=== PATIENT | male | born 1950 ===

== ENCOUNTER 2017-01-01 08:25 | Day surgery (SDC) | payer MEDICAID ==
[2016-12-25 15:58] VITALS: BMI 26.7
[2017-01-01] MEDS ORDERED: Propofol 10 mg/ml Inj (20 ML) ONE (10:57)
[2017-01-01 11:38] VITALS: O2SAT 99
[2017-01-01] MEDS ORDERED: Sodium Chloride 0.9% 1,000 ML IV SCH (12:30)
[2017-01-01 13:17] VITALS: BP 137/73; PULSE 67; RESP 18; TEMP 98.4
== END 2017-01-01 13:58 | disposition home or self-care (01) ==
LOC: ENDO 08:25
PROVIDERS: ATTEND Internal Medicine
DX: D12.2 Benign neoplasm of ascending colon (principal); D12.0 Benign neoplasm of cecum; D12.3 Benign neoplasm of transverse colon; K57.30 Diverticulosis of large intestine without perforation or abscess without bleeding; K64.8 Other hemorrhoids; K21.9 Gastro-esophageal reflux disease without esophagitis; K29.70 Gastritis, unspecified, without bleeding; K29.80 Duodenitis without bleeding; I10 Essential (primary) hypertension; F17.210 Nicotine dependence, cigarettes, uncomplicated; Z12.11 Encounter for screening for malignant neoplasm of colon
CPT/HCPCS: 43239; 45380; 45381; 45385; 88305; 88312; 88342; J2704; J3010; J7040 ×2

== ENCOUNTER 2018-08-04 17:47 | Inpatient (IN) | payer MEDICAID, MEDICARE ==
[2018-08-04 18:02] VITALS: BMI 25.4
[2018-08-04] MEDS: Albuterol-Ipratrop 3 mg / 0.5 (3 ml) UD IH SCH ×3 (18:45→19:13)
--- NOTE | 2018-08-04 18:54 | ED PDOC ---
Arrival/HPI - General Chief Complaint: Shortness Of Breath Time Seen by Provider: 08/04/18 17:57 Historian: Patient - History of Present Illness Narrative History of Present Illness (Text): 08/04/18 18:44 68 y/o M w/ h/o COPD current smoker(7ppwk), HTN presenting to the Emergency Room with shortness of breath ongoing for a couple of weeks. He describes the dyspnea as exertional with associated wheezing that have not been amenable to his inhaled medications. He reports worsening of his symptoms from frequent medication changes for his COPD and attributes his symptoms worsening because of them. He reports seeing his PCP for his symptoms and recalls having lab work performed on 07/30/18 that showed an elevated troponin of 0.[address] chest results. The patient was called and updated on results today and advised to present to the Emergency Room. The patient PCP: Dr. Dias Time/Duration: > week Symptom Onset: Gradual Symptom Course: Unchanged Quality: Tightness Activities at Onset: Rest Context: Home Past Medical History - Provider Review Nursing Documentation Reviewed: Yes - Travel History Have you recently traveled outside [place] w/in the past 3 mons?: No - Infectious Disease Hx of Infectious Diseases: None - Tetanus Immunization Tetanus Immunization: Unknown - Cardiac Hx Pacemaker: No - Pulmonary Hx Chronic Obstructive Pulmonary Disease (COPD): Yes - Neurological Hx Paralysis: No - HEENT Hx Cataracts: Yes (CATARACT removal RT EYE) - Renal Hx Renal Disorder: No - Hematological/Oncological Hx Blood Transfusions: No Hx Blood Transfusion Reaction: No - Integumentary Hx Dermatological Disorder: No - Musculoskeletal/Rheumatological Hx Musculoskeletal Disorders: Yes - Gastrointestinal Hx Gastrointestinal Disorders: No - Genitourinary/Gynecological Hx Prostate Problems: Yes (" BLADDER SPASMS ON AND OFF ") - Psychiatric Hx Emotional Abuse: No Hx Physical Abuse: No Hx Substance Use: No - Anesthesia Hx Anesthesia: Yes Hx Anesthesia Reactions: No Hx Malignant Hyperthermia: No - Suicidal Assessment Feels Threatened In Home Enviroment: No Family/Social History Smoking Status: Light Smoker < 10 Cigarettes Daily Hx Alcohol Use: No Hx Substance Use: No Hx Substance Use Treatment: No Allergies/Home Meds Allergies/Adverse Reactions: Allergies No Known Allergies Allergy (Verified 11/09/13 18:14) Home Medications: Home Meds Medication Instructions Recorded Confirmed Albuterol 0.083% [Albuterol 0.083% 3 ml IH DAILY 09/24/12 01/01/17 Inhal Ignacia (2.5 mg/3 ml) UD] Amlodipine Besylate 5 mg PO DAILY 09/24/12 01/01/17 Aspirin [Aspir 81] 81 mg PO DAILY 09/24/12 01/01/17 Ginkgo Biloba [Ginko Biloba] 60 mg PO DAILY 09/24/12 01/01/17 Terazosin HCl 5 mg PO DAILY 09/24/12 01/01/17 Vitamin B Complex 1 tab PO DAILY 09/24/12 01/01/17 Acetaminophen/Oxycodone Hydr 1 tab PO Q6 PRN 11/09/13 01/01/17 [Percocet 325 mg-5 mg] Ibuprofen 800 mg PO BID 11/09/13 01/01/17 Omeprazole 40 mg PO DAILY 11/09/13 01/01/17 Polyethylene Glycol 3350 17 gm PO BID 11/09/13 01/01/17 Calcium 600 mg PO DAILY 12/25/16 01/01/17 Ibandronate Sodium [Boniva] 150 mg PO QWK 12/25/16 01/01/17 Review of Systems - Physician Review All systems were reviewed & negative as marked: Yes - Review of Systems Respiratory: SOB, Wheezing. absent: Cough, Sputum Physical Exam Vital Signs Reviewed: Yes Vital Signs Temp Pulse Resp BP Pulse Ox 08/04/18 18:11 20 96 08/04/18 18:01 98.8 F 103 H 19 120/69 96 Temperature: Afebrile Blood Pressure: Normal Pulse: Tachycardic Respiratory Rate: Normal Appearance: Positive for: Well-Appearing, Non-Toxic, Comfortable Mental Status: Positive for: Alert and Oriented X 3 - Systems Exam Head: Present: Atraumatic, Normocephalic Pupils: Present: PERRL Extroacular Muscles: Present: EOMI Conjunctiva: Present: Normal Mouth: Present: Moist Mucous Membranes Neck: Present: Normal Range of Motion Respiratory/Chest: Present: Wheezes, Decreased Breath Sounds, Other (able to speak in full sentences). No: Clear to Auscultation, Accessory Muscle Use Cardiovascular: Present: Tachycardic Abdomen: Present: Normal Bowel Sounds. No: Tenderness, Distention, Peritoneal Signs Upper Extremity: Present: Normal Inspection. No: Cyanosis, Edema Neurological: Present: Speech Normal Skin: Present: Warm, Dry, Normal Color. No: Rashes Psychiatric: Present: Alert, Oriented x 3, Normal Insight, Normal Concentration Medical Decision Making ED Course and Treatment: 08/04/18 19:00 Impression: 68 y/o M w/ h/o COPD presenting to the ED wit progressively worsening dyspnea Plan --Labs --Duonebs --Solumedrol --CXR --EKG --Reassess & disposition Progress Notes 08/04/18 19:31 Labs reviewed with troponin noted to be 0.07(lower than 0.13). CXR reviewed with mild cardiomegaly noted as well as elevated BNP of 2070. 08/04/18 19:[address] Dias(PCP) who accepts the patient onto his service, requesting Dr. Jensen(cardiology) for cardiac consult. - Lab Interpretations Lab Results: 08/04/18 18:24 08/04/18 18:24 Lab Results 08/04/18 18:58: pO2 68 H, VBG pH 7.44 H, VBG pCO2 34.0 L, VBG HCO3 23.1, VBG Total CO2 24.1, VBG O2 Sat (Calc) 96.3 H, VBG Base Excess -0.5 L, VBG Potassium 3.8, Glucose 117 H, Lactate 1.7, FiO2 21.0, Sodium 141.0, Chloride 110.0 H, Venous Blood Potassium 3.8 08/04/18 18:24: Sodium 142, Potassium 3.6, Chloride 109 H, Carbon Dioxide 23, Anion Gap 14, BUN 17, Creatinine 1.0, Est GFR ( Amer) > 60, Est GFR (Non- Af Amer) > 60, Random Glucose 110, Calcium 9.1, Magnesium 1.5 L, Total Bilirubin 0.5, AST 36, ALT 19, Alkaline Phosphatase 49, Troponin I 0.07, NT-Pro-B Natriuret Pep 2070 H, Total Protein 6.2, Albumin 3.5, Globulin 2.7, Albumin/Globulin Ratio 1.3 08/04/18 18:24: PT 13.6 H, INR 1.23, APTT 31.7, D-Dimer, Quantitative 313 H 08/04/18 18:24: WBC 11.4 H, RBC 4.35, Hgb 12.4 L, Hct 36.7 L, MCV 84.4, MCH 28.5, MCHC 33.8, RDW 12.3, Plt Count 256, MPV 10.1, Neut % (Auto) 70.4 H, Lymph % (Auto) 21.1 L, [place] % (Auto) 7.4 H, Eos % (Auto) 0.8 L, Baso % (Auto) 0.3, L ymph # (Auto) 2.4, [place] # (Auto) 0.9 H, Eos # (Auto) 0.1, Baso # (Auto) 0.03, Absolute Neuts (auto) 8.04 H I have reviewed the lab results: Yes - RAD Interpretation Radiology Orders: 08/04/18 18:34 CHEST PORTABLE [RAD] Stat - Medication Orders Current Medication Orders: Albuterol/Ipratropium (Duoneb 3 Mg/0.5 Mg (3 Ml) Ud) 3 ml IH Q15M MOMO Stop: 08/04/18 19:16 Discontinued Medications Methylprednisolone (Solu-Medrol) 125 mg IVP STAT STA Stop: 08/04/18 18:35 08/04/18 19:32 Discontinued Medications Albuterol/Ipratropium (Duoneb 3 Mg/0.5 Mg (3 Ml) Ud) 3 ml IH Q15M MOMO Stop: 08/04/18 19:16 Last Admin: 08/04/18 18:58 Dose: 3 ml Methylprednisolone (Solu-Medrol) 125 mg IVP STAT STA Stop: 08/04/18 18:35 Last Admin: 08/04/18 18:49 Dose: 125 mg IVP Administration Document 08/04/18 18:49 BB (Rec: 08/04/18 18:58 BB [facility] [id number] Charges for Administration # of IVP Administrations 1 Disposition/Present on Arrival - Present on Arrival Any Indicators Present on Arrival: No History of DVT/PE: No History of Uncontrolled Diabetes: No Urinary Catheter: No History of Decub. Ulcer: No History Surgical Site Infection Following: None - Disposition Have Diagnosis and Disposition been Completed?: Yes Diagnosis: Dyspnea Disposition: HOSPITALIZED Disposition Time: 19:42 Patient Plan: Admission Condition: FAIR Forms: [employer] ([place])
[2018-08-04 19:00] LABS: BASO # 0.03 K/mm3 (0.0-2.0); BASO % 0.3 % (0.0-3.0); EOS # 0.1 (0.0-0.7); EOS % 0.8 % (1.5-5.0); HEMOGLOBIN 12.4 g/dL (14.0-18.0); LYMPH # 2.4 (1.2-3.4); LYMPH % 21.1 % (22.0-35.0); MEAN CELL VOLUME 84.4 fl (80.0-105.0); MEAN CORPUSCULAR HEMOGLOBIN 28.5 pg (25.0-35.0); MEAN CORPUSCULAR HGB CONC 33.8 g/dl (31.0-37.0); MEAN PLATELET VOLUME 10.1 fl (7.0-11.0); MONO # 0.9 (0.1-0.6); MONO % 7.4 % (1.0-6.0); RBC 4.35 10^6/uL (3.5-6.1); RED CELL DISTRIBUTION WIDTH 12.3 % (11.5-14.5); WHITE BLOOD COUNT 11.4 10^3/uL (4.5-11.0)
[2018-08-04 19:04] LABS: INR 1.23; PARTIAL THROMBOPLASTIN TIME 31.7 Seconds (26.9-38.3); PROTHROMBIN TIME 13.6 SECONDS (9.4-12.5)
[2018-08-04 19:06] LABS: ALB/GLOB RATIO 1.3 (1.1-1.8); ALBUMIN 3.5 g/dL (3.0-4.8); ALT/SGPT 19 U/L (7-56); AST/SGOT 36 U/L (17-59); BLOOD UREA NITROGEN 17 mg/dL (7-21); CALCIUM 9.1 mg/dL (8.4-10.5); GFR NON-AFRICAN AMERICAN > 60
[2018-08-04 19:08] LABS: VENOUS BLOOD GAS BASE EXCESS -0.5 mmol/L (0.0-2.0); VENOUS BLOOD GAS PO2 68 mm/Hg (30-55); VENOUS BLOOD PH 7.44 (7.32-7.43)
[2018-08-04 19:17] LABS: B-TYPE NATRIURETIC PEPTIDE 2070 pg/mL (0-450); TROPONIN I 0.07 ng/mL
[2018-08-04] MEDS ORDERED: Albuterol 0.083% Inhal Sol (2.5 mg/3 mL) UD INH STA (19:40)
[2018-08-04] MEDS: Magnesium Sulfate 2 GM in 50 ml Water IVPB ONE ×2 (20:21→23:06)
[2018-08-04] MEDS ORDERED: Magnesium Sulfate 2 GM in Sodium Chloride 0.9% 100 ML IV ONE (21:47)
[2018-08-04 22:26] LABS: URINE BILIRUBIN NEGATIVE (NEGATIVE); URINE BLOOD NEGATIVE (NEGATIVE); URINE GLUCOSE (UA) NEGATIVE (NEGATIVE); URINE LEUKOCYTE ESTERASE NEGATIVE Leu/uL (NEGATIVE); URINE PROTEIN NEGATIVE mg/dL (<30 mg/dL); URINE UROBILINOGEN 0.2 E.U./dL (<1 E.U./dL)
[2018-08-04 22:29] LABS: URINE APPEARANCE CLEAR (CLEAR); URINE COLOR YELLOW (YELLOW)
[2018-08-04] MEDS: Magnesium Oxide 400 mg Tab UD PO SCH (23:05)
[2018-08-05] MEDS: Arformoterol 15 mcg/2 ml Inh Sol IH SCH ×2 (07:45→19:32)
[2018-08-05] MEDS: Budesonide 0.5 mg/2 ml Inhal Susp UD IH SCH ×2 (07:45→19:32)
--- NOTE | 2018-08-05 08:13 | CT ---
Date of service: 08/04/2018 PROCEDURE: CT Chest with contrast (Pulmonary Angiogram) HISTORY: dyspne high d dimer, COMPARISON: None available. TECHNIQUE: Axial computed tomography images were obtained of the chest in the pulmonary arterial phase of enhancement. Coronal and sagittal reformatted images were created and reviewed. Intravenous contrast dose: 120 cc of Omni 350 Radiation dose: Total exam DLP = 349.64 mGy-cm. This CT exam was performed using one or more of the following dose reduction techniques: Automated exposure control, adjustment of the mA and/or kV according to patient size, and/or use of iterative reconstruction technique. FINDINGS: PULMONARY ARTERIES: Unremarkable. No pulmonary embolism. AORTA: No acute findings. No thoracic aortic aneurysm. Aortic and coronary artery calcification LUNGS: Emphysematous changes are seen in the upper lobes PLEURAL SPACES: Unremarkable. No effusion or pneumothorax. HEART: Unremarkable. No cardiomegaly. No significant pericardial effusion. LYMPH NODES: No lymphadenopathy. BONES, CHEST WALL: Unremarkable. No fracture or destructive lesion OTHER FINDINGS: Unremarkable. IMPRESSION: No evidence of pulmonary embolus. Emphysema. Extensive coronary artery calcification
--- NOTE | 2018-08-05 08:35 | RAD ---
Date of service: 08/04/2018 HISTORY: sob COMPARISON: 11/09/2013 TECHNIQUE: 1 view obtained. FINDINGS: LUNGS: No active pulmonary disease. PLEURA: No significant pleural effusion identified, no pneumothorax apparent. CARDIOVASCULAR: No aortic atherosclerotic calcification present. Normal cardiac size. No pulmonary vascular congestion. OSSEOUS STRUCTURES: No significant abnormalities. VISUALIZED UPPER ABDOMEN: Normal. OTHER FINDINGS: None. IMPRESSION: No active disease.
[2018-08-05 09:38] LABS: TROPONIN I 0.05 ng/mL
[2018-08-05] MEDS ORDERED: Enoxaparin 40 mg Syringe SC SCH (10:00)
[2018-08-05] MEDS ORDERED: Sodium Chloride 0.45% 1,000 ML IV SCH (10:15)
[2018-08-05] MEDS: Enoxaparin 60 mg Syringe SC SCH ×2 (10:20→21:24)
[2018-08-05] MEDS: Magnesium Oxide 400 mg Tab UD PO SCH ×2 (10:20→17:31)
--- NOTE | 2018-08-05 11:50 | CARD ---
APPROVED REPORT Date of service: 08/04/2018 EKG Measurement Heart [id number] <Conclusion> Sinus tachycardia Incomplete right bundle branch block Left anterior fascicular block Left ventricular hypertrophy with repolarization abnormality Cannot rule out Septal infarct, age undetermined Abnormal ECG
--- NOTE | 2018-08-05 14:06 | CON ---
DATE: 08/05/2018 PULMONARY CONSULTATION NOTE REFERRING PHYSICIAN: Martín Dias MD REASON FOR CONSULT: Dyspnea and COPD. HISTORY OF PRESENT ILLNESS: This is a 68-year-old male with past medical history significant for hypertension, COPD, acid reflux, glaucoma, who presented to the emergency room complaining of shortness of breath which has been ongoing for a couple of weeks. States that he experiences dyspnea on exertion associated with wheezing. He has been taking inhaled medications which have not provided relief. Reports that he has recently had frequent medication changes for his COPD. States that he saw his primary care physician for his symptoms and have blood work drawn which showed elevated troponin of 0.[address] chest result. The patient was called and updated with results prior to coming to the emergency room as he was told to come to [facility] ER for evaluation. Today, the patient seen lying in bed. Reports that he does get short of breath with exertion, has nonproductive cough, and runny nose. States that he feels fatigued throughout the day. PAST MEDICAL HISTORY: As per history of present illness. SOCIAL HISTORY: Former smoker. Reports quitting 11/2017, used to smoke one pack per day. No illicit drug use. No reported EtOH abuse. FAMILY HISTORY: No significant cardiopulmonary disease reported. ALLERGIES: NO KNOWN ALLERGIES. MEDICATIONS: Reviewed. Norvasc 5 mg p.o. daily, Brovana 15 mcg every 12 hours, aspirin 81 mg daily, Pulmicort 0.5 mg inhalation twice a day, Plavix 75 mg daily, Lovenox 60 mg subcutaneous every 12 hours, Pepcid 40 mg IV twice a day, Xopenex 0.63 mg inhalation every 6 hours p.r.n., magnesium oxide 400 mg twice a day, metoprolol tartrate 25 mg at breakfast and dinner, and sodium chloride 0.45% a 1000 mL at 100 mL per hour. REVIEW OF SYSTEMS: No headache, chest pain, abdominal pain, nausea, vomiting, diarrhea, leg pain, or leg swelling reported. Reports shortness of breath with exertion, nonproductive cough, runny nose, reports that he snores, reports having daytime fatigue. PHYSICAL EXAMINATION VITAL SIGNS: Blood pressure 143/73, pulse 58, temperature 98.1, and oxygen saturation 98% on room air. GENERAL: No acute distress. HEENT: Moist mucous membranes. Mallampati score of 4. NECK: Supple. No JVD. RESPIRATORY: Few scattered rhonchi. CARDIOVASCULAR: S1 and S2. ABDOMEN: Soft and nontender. No distention. No organomegaly. EXTREMITIES: No bilateral lower extremity edema. NEUROLOGIC: Awake, alert, verbal, and following commands. LABORATORY DATA: Reviewed. WBC 11.4, RBC 4.35, hemoglobin 12.4, hematocrit 36.7 and platelets 256. PT 13.6, INR 1.23, and APTT 31.7. D-dimer 313. PO2 of 68, venous blood gas pH 7.44, venous blood gas PCO2 of 34, venous blood gas HCO3 of 23.1 on FiO2 of 21. Sodium 142, potassium 3.6, chloride 109, carbon dioxide 23, anion gap 14, BUN 17, creatinine 1, GFR is greater than 60, random glucose 110, calcium 9.1, magnesium 1.5, total bilirubin 0.5, AST 36, ALT 19, alkaline phosphatase 49, lactate dehydrogenase is 433, total creatine kinase 276, CK-MB 2. Troponin 0.05. ProBNP 2070, total protein 6.2, albumin 3.5, globulin 2.5 and albumin-globulin ratio 1.3. Urinalysis unremarkable. EKG shows sinus tachycardia, incomplete right bundle branch block, left anterior fascicular block, left ventricular hypertrophy with repolarization abnormality. Chest x-ray showed no active disease. Chest CT shows no evidence of pulmonary embolism. Snows emphysema, extensive coronary artery calcification. Echocardiogram report pending. IMPRESSION AND PLAN: Chronic obstructive pulmonary disease exacerbation, heart failure, emphysema, and hypertension. Continue inhaled bronchodilators. Continue deep venous thrombosis prophylaxis. We will place the patient on Solu-Medrol 20 mg every [address] the patient on Zithromax 500 mg daily for chronic obstructive pulmonary disease exacerbation. We will change Pepcid to p.o. and place the patient on Pepcid 40 mg daily. Gastroesophageal reflux disease precautions. Suspect the patient may have sleep apnea, so sleep apnea precautions, head of bed elevated at 45 degrees. Recommend sleep study as outpatient. Recommend the patient have full pulmonary function test as outpatient to assess extent of chronic lung disease. We will follow up with echocardiogram report when available. This patient was seen and examined with Dr. Nieto. Discussed assessment and plan as described above. This patient was seen and examined with Brianna Gonsalez, nurse practitioner. Discussed assessment and plan as described above. Thank you for this consult. We will follow with you. Wallace Reed APN Don Nieto MD MTDAriana
[2018-08-05] MEDS: MethylPREDNISolone 40 mg Vial IVP SCH ×2 (14:19→21:24)
[2018-08-05 15:02] LABS: TROPONIN I 0.04 ng/mL
[2018-08-05 15:05] LABS: CK-MB 2.9 ng/mL (0.0-3.6)
[2018-08-05] MEDS: Levalbuterol 0.63 MG/3 ML Inhal Soln UD IH PRN (15:50)
--- NOTE | 2018-08-05 20:15 | CARD ---
APPROVED REPORT Date of service: 08/05/2018 EXAM: Two-dimensional and M-mode echocardiogram with Doppler and color Doppler. INDICATION Chest Pain ACS, 2D DIMENSIONS Left Atrium (2D)4.3 (1.6-4.0cm)IVSd1.3 (0.7-1.1cm) LVDd4.8 (3.9-5.9cm)LVOT Diameter2.1 (1.8-2.4cm) PWd1.1 (0.7-1.1cm)LVDs3.3 (2.5-4.0cm) FS (%) 31.6 %LVEF (%)59.5 (>50%) M-Mode DIMENSIONS Aortic Root2.60 (2.2-3.7cm)Aortic Cusp Exc.1.00 (1.5-2.0cm) Aortic Valve AoV Peak Yjcbtzcl340.5cm/sAoV VTI62.4cmAO Peak GR.56mmHg LVOT Peak Srnnbzkr507.5cm/sLVOT VTI21.10cmAO Mean GR.23mmHg VIVIANE (VMAX)1.11dl4PKC (VTI)1.25cm2 Mitral Valve E/A ratio0.0 TDI E/Lateral E'0.0E/Medial E'0.0 Tricuspid Valve TR Peak Kvjisvkw309hd/sRAP [id number] Peak Gr.33mmHg [id number] LEFT VENTRICLE The left ventricle is normal size. Mild Septal Hypertrophy. The left ventricular function is normal. The left ventricular ejection fraction is within the normal range.Ej.Fr: 60%. RIGHT VENTRICLE The right ventricle is normal size. The right ventricular systolic function is normal. ATRIA The left atrium is mildly dilated. The right atrium size is normal. AORTIC VALVE Calcified Aortic Valve shows Moderate to Severe Aortic Stenosis.AV.gr:56mm Hg. Valve Opening 1.00 cm. There is moderate to severe aortic regurgitation. TRICUSPID VALVE The tricuspid valve is normal in structure. There is mild tricuspid regurgitation. RVSP: 43mm Hg.Mild Pulmonary Hypertension. PERICARDIAL EFFUSION There is no pericardial effusion. <Conclusion> The left ventricle is normal size. Mild Septal Hypertrophy. The left ventricular function is normal. The left ventricular ejection fraction is within the normal range.Ej.Fr: 60%. The right ventricle is normal size. The right ventricular systolic function is normal. The left atrium is mildly dilated. The right atrium size is normal. Calcified Aortic Valve shows Moderate to Severe Aortic Stenosis.AV.gr:56mm Hg. Valve Opening 1.00 cm. Moderate to Severe Aortic Regurge. Thickened Mitral Leaflet. Mild Mitral Regurge. The tricuspid valve is normal in structure. There is mild tricuspid regurgitation. RVSP: 43mm Hg.Mild Pulmonary Hypertension. There is no pericardial effusion.
--- NOTE | 2018-08-05 20:43 | CON ---
DATE: 08/05/2018 CONSULT SERVICE: Cardiology. REASON FOR CONSULTATION AND FOLLOWUP: Cardiac evaluation, dyspnea on exertion, and questionable chest pain. BRIEF CLINICAL HISTORY: This is a 68-year-old male, active tobacco abuse, recently stopped smoking, history of hypertension, came to the emergency room with complaint of shortness of breath progressively worsening. Recently, troponin was sent by Dr. Dias's office on 07/30/2018 came at 0.13, so the patient was called for cardiac evaluation. The patient had a chest CT done last night on admission that shows extensive coronary calcification, unremarkable. No evidence of pulmonary embolism. PAST MEDICAL HISTORY: Significant for hypertension, benign prostatic hypertrophy, and COPD. PREVIOUS CARDIAC WORKUP: The patient had transesophageal echo on 09/29/[address] 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 SUSANNE at that time revealed aortic size and normal size ascending aorta is normal. Pulmonary artery is normal. IVC is normal. Normal LV/RV size and function, ejection fraction 65%, intraatrial septal aneurysm noted with intermittent PFO noted by bubble study and color flow, which is hemodynamically not significant. No mass noted in chambers. Tricuspid annular calcification noted as well as noncoronary cusp aortic valve, which is somewhat immobile, not coapting well with mild , moderate aortic regurgitation with a peak gradient across aortic valve 19 mmHg across aortic valve. Aortic valve area 1.8 cm2. This calcification casting showed the right atrium mass at that time, dated 09/29/2018. Yesterday, the patient had a CAT scan of the chest was done that shows coronary calcification and no evidence of pulmonary embolism. Chest is essentially normal. REVIEW OF SYSTEMS: As per HPI. CURRENT MEDICATIONS: The patient is taking at home; B complex, , polyethylene glycol, omeprazole, ibuprofen, calcium, aspirin, and amlodipine. PHYSICAL EXAMINATION: VITAL SIGNS: As follows; temperature afebrile, heart rate 58, and blood pressure 143/78. HEENT: PERRLA. Extraocular muscles intact. NECK: Supple. No carotid bruits or thyromegaly. CHEST: Clear to auscultation. HEART: S1 and S2 regular. ABDOMEN: Soft. EXTREMITIES: Clubbing and cyanosis negative. LABORATORY DATA: Blood workup; WBC 11.4, hemoglobin 12.4, hematocrit 36.7, and platelet count 256. Chemistry shows sodium 140, potassium 3.6, chloride 109, carbon dioxide 23, anion gap of 14, BUN 17, and creatinine 1. Calcium 9.1, magnesium 1.5, troponin 0.07, and BNP 2070. EKG shows sinus tachycardia, incomplete right bundle, and left anterior hemiblock. IMPRESSION: A 68-year-old male with past medical history significant for smoking for more than 40 years pack history of smoking and recently quit, came in with shortness of breath progressively worsening and sometimes had tightness of the chest. Troponin sent by Dr. Dias's office on 07/30/2018 of 0.13, possible underlying coronary artery disease. CAT scan of the chest also shows significant coronary calcification and high probability of coronary artery disease. RECOMMENDATIONS: Consider cardiac catheterization. We will get echocardiogram to assess LV function, lipid profile, TSH, and hemoglobin A1c. Load with the Plavix and discuss possibly consider cardiac catheterization after finishing workup with the patient able to lay flat in the bed. The patient has mild shortness of breath, aggressive to treat COPD. We will also give beta-efrain, Lovenox, and start aspirin, Plavix, and atorvastatin. We will follow with you. Thank you Dr. Dias for providing us the opportunity in taking care of the patient, Elyssa Garcia. Don Gonzalez MD
[2018-08-06] MEDS: MethylPREDNISolone 40 mg Vial IVP SCH ×3 (05:53→21:28)
[2018-08-06 06:30] LABS: BASO # 0.01 K/mm3 (0.0-2.0); BASO % 0.1 % (0.0-3.0); LYMPH # 2.4 (1.2-3.4); LYMPH % 19.4 % (22.0-35.0); MEAN CORPUSCULAR HEMOGLOBIN 28.1 pg (25.0-35.0); MEAN CORPUSCULAR HGB CONC 33.4 g/dl (31.0-37.0); MONO # 0.7 (0.1-0.6); MONO % 5.7 % (1.0-6.0); RBC 4.63 10^6/uL (3.5-6.1); RED CELL DISTRIBUTION WIDTH 12.3 % (11.5-14.5); WHITE BLOOD COUNT 12.1 10^3/uL (4.5-11.0)
[2018-08-06 07:00] LABS: LDL CHOLESTEROL 77 mg/dL (0-129)
[2018-08-06 07:03] LABS: ALB/GLOB RATIO 1.4 (1.1-1.8); ALBUMIN 4.1 g/dL (3.0-4.8); ALT/SGPT 29 U/L (7-56); AST/SGOT 52 U/L (17-59); BLOOD UREA NITROGEN 28 mg/dL (7-21); GFR NON-AFRICAN AMERICAN > 60; HDL CHOLESTEROL 41 mg/dL (29-60)
[2018-08-06] MEDS: Arformoterol 15 mcg/2 ml Inh Sol IH SCH ×2 (07:51→20:08)
[2018-08-06] MEDS: Budesonide 0.5 mg/2 ml Inhal Susp UD IH SCH ×2 (07:52→20:08)
--- NOTE | 2018-08-06 07:55 | HP ---
DATE OF EXAM: 08/05/2018 HISTORY OF PRESENT ILLNESS: The patient was sent to the emergency room after found to have dyspneic for one week with minimal movement, going to the bathroom, had a blood work, troponin which elevated, and came to the hospital for further evaluation. The patient has been a smoker, still smokes intermittently. He has intermittent also chest heaviness and the last time he had a stress test was more than 2 or [address] Gonzalez which was normal. He has no fever, no chills, no cough. Also he does have some wheezing at night. PAST MEDICAL HISTORY: As I mentioned, COPD, hypertension, osteoporosis, compression fracture, osteoarthritis, back pain, and hypercholesterolemia. ALLERGY: NO KNOWN ALLERGY. 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 He smokes intermittently. No drugs and no alcohol. REVIEW OF SYSTEMS: As in the present illness. He does get some wheezing, on nebulizer machine. He has COPD. He has no chest pain, back pain, knee arthritis, neck pain. Also frequent urinations, seen by prostate specialist in the past. PHYSICAL EXAMINATION: VITAL SIGNS: His temperature 98.1, heart rate 58, blood pressure 143/73, respiration 20, and saturation 98% on room air. HEAD AND NECK: Normal. No JVD. No thyromegaly. CHEST: Clear bilaterally. CARDIAC: First sound and second sound normal. No murmur, rub, or gallop. ABDOMEN: Soft and nontender. EXTREMITIES: No edema. NEUROLOGIC: Normal. LABORATORY DATA: White count 11.4, hemoglobin 12.4, hematocrit 36.7, and platelet is 256. PT/PTT was normal. D-dimer was 313. Blood gas shows pO2 of 68, pH 7.44, pCO2 is 34 low. Chemistry noted for sodium 142, potassium 3.6, chloride 109, bicarb 23, BUN 17, and creatinine 1. Liver function test is normal. Magnesium 1.5. BNP 2070. Urine is negative. The patient also had a chest x-ray which was no active lung disease. Also the patient had a CT and the CT with no contrast for the lung patient shows emphysema, but no lung nodules. Also had an EKG with reported no ST-elevations. IMPRESSION AND PLAN: A 68-year-old male came in with intermittent dyspnea that has been going on for a week. Lab work shows high troponin. Repeat lab work in the hospital that shows high BNP. Chest x-ray shows no active disease. 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 Tvy-GB-[id number] myocardial infarction. 2. Dyspnea. High D-dimer. We will get a CT angiogram to rule out any pulmonary embolism and we will get a Cardiology consult and Pulmonary consult to resume his medications. We will follow up with the consultants. The patient is otherwise medically stable. We will resume his blood pressure medicines, cholesterol medicines, and give him aspirin, Lovenox, beta efrain 25 mg b.i.d. and follow up with the specialists. Martín Dias MD
[2018-08-06] MEDS: Magnesium Oxide 400 mg Tab UD PO SCH ×2 (09:01→18:51)
[2018-08-06] MEDS: Enoxaparin 60 mg Syringe SC SCH ×2 (10:28→21:30)
--- NOTE | 2018-08-06 13:06 | US ---
Date of service: 08/06/2018 HISTORY: hyperthyoidism TECHNIQUE: Sonographic evaluation of the thyroid gland. COMPARISON: None. FINDINGS: RIGHT LOBE: Measures 1.8 x 2.5 x 5.2 cm. Heterogeneous echo characteristics, mildly increased vascularity. Nodules: None LEFT LOBE: Measures 2.1 x 2.1 x 5.0 cm. Heterogeneous echo characteristics, symmetrical vascularity. Nodules: None ISTHMUS: Measures 5.0 mm. Nodules: None OTHER FINDINGS: None . IMPRESSION: No focal abnormalities detected. No suspicious nodules seen. Heterogeneous, mildly hypervascular gland.
--- NOTE | 2018-08-06 14:31 | PN ---
DATE: 08/06/2018 REASON FOR CONSULTATION AND FOLLOWUP: Cardiac evaluation, dyspnea on exertion, questionable history of non-ST segment myocardial infarction, positive troponin outside on 07/30/2018, moderate to severe aortic stenosis, and moderate to severe aortic regurgitation. SUBJECTIVE: The patient denies any chest pain, shortness of breath or any palpitation. OBJECTIVE: Not in apparent distress. PHYSICAL EXAMINATION VITAL SIGNS: Temperature afebrile, heart rate 70, blood pressure 133/78. HEENT: PERRLA. Extraocular muscles intact. NECK: Supple. No carotid bruits or thyromegaly. CHEST: Clear to auscultation. HEART: S1 and S2, regular. ABDOMEN: Soft. EXTREMITIES: Clubbing and cyanosis, negative. LABORATORY DATA: Blood workup as follows; WBC 12.1, hemoglobin 13, hematocrit 38.9, platelet count 318. Chemistry showed sodium 144, potassium 4.4, chloride 107, carbon dioxide 23, anion gap of , BUN 28, creatinine 0.9. Troponins 0.07, 0.07, and 0.4. IMPRESSION: A 68-year-old male with past medical history significant for moderate aortic stenosis in the past, admitted with progressively worsening shortness of breath and chest pain. Outside, the patient had troponin done on 07/30, his troponin was 1.13. He has a troponin of 0.5 yesterday. The patient had repeat echo done that shows moderate to severe aortic stenosis, moderate to severe aortic regurgitation. Prior to that, the patient had a SUSANNE 5 years ago that showed mild aortic stenosis, moderate aortic regurgitation, acute coronary syndrome, unstable agnina, chronic obstructive pulmonary disease, active tobacco abuse. CAT scan showed severe coronary calcification. No evidence of pulmonary embolism. RECOMMENDATIONS: We will give aspirin and Plavix. Hold Lovenox after today's dose, n.p.o. after 12 midnight for cardiac catheterization tomorrow. Risks, benefits, and alternatives were discussed with the patient. The patient agreed to proceed for cardiac catheterization, further recommendation after cardiac catheterization. We will follow with you. Also, suggest to continue to treat aggressively for COPD, so the patient can lay flat on the bed during cardiac catheterization. Thank you Dr. Dias for providing us the opportunity in taking care of the patient, Elyssa Garcia. Don Gonzalez MD
--- NOTE | 2018-08-06 15:52 | PN ---
DATE: 08/06/2018 PULMONARY PROGRESS NOTE REFERRING PHYSICIAN: Martín Dias MD SUBJECTIVE: The patient is seen sitting up in bed. No acute distress. No overnight events reported. States that he still has productive cough, is reporting some nasal congestion. States that he is feeling better today. No headache, rhinitis, chest pain, shortness of breath, abdominal pain, nausea, vomiting, diarrhea, leg pain or leg swelling reported. OBJECTIVE: GENERAL: No acute distress. VITAL SIGNS: Blood pressure 155/83, pulse 97, temperature 98 and oxygen saturation 94% on room air. HEENT: Moist mucous membranes. Mallampati score of 4. NECK: Supple. No JVD. RESPIRATORY: Few scattered rhonchi. CARDIOVASCULAR: S1 and S2. ABDOMEN: Soft and nontender. No distention. No organomegaly. EXTREMITIES: No bilateral lower extremity edema. NEUROLOGICAL: Awake, alert and verbal. Following commands. MEDICATIONS: Reviewed. Norvasc 5 mg daily, Brovana 15 mcg every 12 hours, aspirin 81 mg daily, Zithromax 500 mg daily, Pulmicort 0.5 mg inhalation twice a day, Plavix 75 mg daily, Lovenox 60 mg subcutaneous every 12 hours, Pepcid 40 mg at bedtime, Xopenex 0.63 mg inhalation every 6 hours p.r.n., Claritin 10 mg daily, magnesium oxide 400 mg twice a day, Solu-Medrol 20 mg every 8 hours, metoprolol tartrate 25 mg at breakfast and dinner and Singulair 10 mg at bedtime. LABORATORY DATA: Reviewed. WBC 12.1, RBC 4.63, hemoglobin 13, hematocrit 38.9 and platelets 318. Sodium 141, potassium 4.4, chloride 107, carbon dioxide 23, anion gap 15, BUN 28, creatinine 0.9, GFR is greater than 60, random glucose 127, hemoglobin A1C 5.7, calcium 9.0, phosphorous 5.4, magnesium 2.2, total bilirubin 0.3, AST 52, ALT 29, alkaline phosphatase 58, total protein 7, albumin 4.1, globulin 3.1 and albumin-globulin ratio 1.4. Triglycerides 115, cholesterol 150, LDL cholesterol 77, HDL cholesterol 41, TSH less than 0.02 and free T4 3.65. Blood cultures preliminary no growth after 24 hours. Thyroid ultrasound shows no focal abnormality detected. No suspicious nodule seen, heterogenous mild hypervascular gland. Echocardiogram shows mild septal hypertrophy ejection fraction 60%, moderate to severe aortic stenosis, moderate to severe aortic regurgitation, RVSP 43, mild pulmonary hypertension, and no pericardial effusion. IMPRESSION AND PLAN: Chronic obstructive pulmonary disease exacerbation, heart failure, valvular heart disease, emphysema, hypertension and mild pulmonary hypertension, we do suspect sleep apnea in this patient sleep apnea, sleep apnea precaution head of bed elevated at 45 degrees. Recommend close cardiopulmonary monitoring while sedated. Continue inhaled bronchodilators. Continue deep venous thrombosis prophylaxis. Continue steroid dosing at this time. Antibiotic therapy. Continue gastric prophylaxis. Cardiology followup. We recommend the patient have sleep study as outpatient to evaluate sleep apnea syndrome. We recommend the patient have full pulmonary function test as outpatient to assess extent of chronic lung disease. This patient was seen and examined with Dr. Nieto. Discussed assessment and plan as described above. This patient was seen and examined with Wallace Reed, nurse practitioner. Discussed assessment and plan as described above. Thank you for this consult and we will follow with you. Wallace Reed APN Don Nieto MD
[2018-08-06] MEDS: Levalbuterol 0.63 MG/3 ML Inhal Soln UD IH PRN (16:39)
--- NOTE | 2018-08-06 17:38 | PN ---
DATE: 08/06/2018 SUBJECTIVE: The patient was seen and evaluated. He has no chest pain and no shortness of breath. Supposed to go for cardiac catheterization but has been canceled. He has no other complaint. No nausea, no vomiting, no diarrhea. PHYSICAL EXAMINATION: VITAL SIGNS: Temperature 98, heart rate 70, blood pressure 155/83, respirations 20, saturating at 95% on room air. HEAD AND NECK: Normal. No JVD. No thyromegaly.. CHEST: Clear bilaterally. CARDIAC: First and second sounds normal. No murmur or gallop. ABDOMEN: Soft, nontender EXTREMITIES: No edema. NEUROLOGICAL: Normal. LABORATORY DATA: White count 12.1, hemoglobin 13, hematocrit 38.9, platelets 318. Chemistry: Sodium 141, potassium 4.4, chloride 107, bicarbonate 23, BUN 28, creatinine 0.9, and the patient also has a phosphorus of 5.4, calcium 9, hemoglobin A1c of 5.7. Liver function test is normal. The patient also has his cholesterol checked. His LDL is 77; cholesterol 150, HDL 41. The patient also noted that he has TSH of 0.02 and free T4 is elevated at 3.65. . IMPRESSION AND PLAN: 1. Acute non-ST elevation myocardial infarctions. We will discuss with Dr. Gonzalez possible cardiac catheterization. The patient is stable, has no chest pain. Continue beta-efrain. 2. Hypertension. I am going to add angiotensin-receptor blockers and we will continue to monitor his blood pressures. 3. Thyroid dysfunction, possible hypothyroidism versus thyroiditis; he does complain of neck pain. We will get ultrasound of thyroid. We will get thyroid antibodies and we will get Dr. Trang Lux for evaluation. The patient contrast. We will discuss further with computer console operator and ampoule examiner. 4. Chronic obstructive pulmonary disease. Seen by pulmonary consult, Dr. Nieto. Continue intravenous steroid. Continue him on bronchodilator. The patient is stable. No other complaint. 5. Leukocytosis, possible bronchitis. He is on steroids , Zithromax, Xopenex, Plavix, Pepcid, Norvasc, Lopressor, Brovana and Ecotrin. Continue current therapy. We will add Diovan 40 mg. Will follow up clinically. Martín Dias MD [facility] # [id number]
[2018-08-06] MEDS: Fluticasone Nasal 50 mcg/Spray NS SCH (21:54)
--- NOTE | 2018-08-07 01:38 | CON ---
DATE: 08/06/2018 ENDOCRINOLOGY CONSULT Room #366. HISTORY OF PRESENT ILLNESS: This is a 68-year-old male with known history of longstanding chronic obstructive lung disease who is admitted now with progressive shortness of breath and hypoxemia and has been started on IV steroid therapy and is being referred now for evaluation of abnormal thyroid function studies. He denies any prior intake of any thyroid medications in the past as noted. PAST MEDICAL HISTORY: History of longstanding hypertension, on antihypertensive medications, history of chronic obstructive lung disease from nicotine dependence, history of hypertension and dyslipidemia as mentioned. FAMILY HISTORY: Positive for hypertension and heart disease. SOCIAL HISTORY: The patient is a current active smoker, consuming half a pack a day for over 30 years now. REVIEW OF SYSTEMS: The patient has a supportive family; otherwise, review of systems as mentioned above, admits to generalized body weakness with episodic bouts of dizziness and lightheadedness, worse on the day of admission, admits to progressive shortness of breath initially on exertion and then at rest. He denies any precordial chest pains or pleuritic chest pains at this time. He admits, however, to productive cough, especially nocturnally. PHYSICAL EXAMINATION: GENERAL: This is an average-built male in no apparent distress. VITAL SIGNS: Blood pressure of 144/80, pulse of 106 per minute, regular; temperature 99, respirations 20, height is 5 feet 6 inches, weight is 158 pounds. HEENT: Head normocephalic. Eyes anicteric with pink conjunctivae. Funduscopy not possible at this time. Ears, nose, and throat otherwise normal. NECK: Supple. Thyroid gland is normal in size. No carotid bruits or cervical adenopathy. CARDIOPULMONARY: Some adynamic precordium. S1, S2 is rapid and regular. LUNGS: Show scattered rhonchi. ABDOMEN: Flat, soft with positive bowel sounds. EXTREMITIES: No peripheral edema. Pulses are +2 bilaterally. LABORATORY DATA: His chemistries showed a BUN of 28, sodium 141, potassium 4.4, chloride 107, CO2 of 23, glucose 127, and creatinine 0.5. His A1c is 5.7% indicative of early pre-diabetes. His thyroid studies showed a free T4 of 3.65 with a TSH of less than 0.02. ASSESSMENT: This is a 68-year-old male with acute exacerbation of chronic obstructive pulmonary disease, currently on intravenous steroid therapy, with concomitant biochemical evidence, with concomitant focal euthyroid hyperthyroxinemia with a suppressed TSH and elevated free T4 levels. However, we have to exclude also the possibility of steroid-induced transient TSH suppression from the increased suppressive effect of the steroid therapy to the hypothalamic pituitary thyroid axes thereof. However, we will also exclude the possibility of overt hyperthyroidism from underlying Graves' disease or autoimmune thyroiditis. PLAN OF MANAGEMENT: We will obtain a comprehensive thyroid hormonal profile to include therefore a total T4 or thyroxine level tomorrow morning and also repeat TSH and free T4 levels as ordered. We will add the thyroid stimulating immunoglobulin and a thyroid peroxidase antibody to confirm and/or indicate the presence of underlying thyroid autoimmunity. We will follow and advise accordingly. Trang Lux MD [facility] # [id number]
--- NOTE | 2018-08-07 04:05 | PN ---
DATE: 08/06/2018 SUBJECTIVE: The patient is stable. No chest pain now. No short of breath. He feels better. The patient is going for cardiac cath tomorrow morning. PHYSICAL EXAMINATION: VITAL SIGNS: Temperature 98, heart rate is 97, blood pressure 155/82, respirations 18, saturation 95%. HEAD AND NECK: Normal. No JVD. No thyromegaly. CHEST: Clear. CARDIAC: First sound and second sound normal. No murmur or gallop. ABDOMEN: Soft, nontender. EXTREMITIES: No edema. NEUROLOGICAL: Normal. LABORATORY DATA: White count 12.1, hemoglobin 13, hematocrit 38.9, platelets 318. Chemistry; sodium 141, potassium 4.4, chloride 107, bicarb 23, BUN 28, creatinine 0.9, blood sugar 127, phosphorus 5.4, magnesium 2.2. The patient also had a TSH of 0.02 and free T4 is 3.65. IMPRESSION AND PLAN: 1. Chest pain. Considering chest pain, positive troponin, acute non-ST elevation myocardial infarction, the patient will go for cardiac catheterization and echocardiography. 2. Thyroid dysfunction possible hyperthyroidism. We will get thyroid scan. We will get Dr. Trang Lux to evaluate the patient. His TSH is low and high T4. 3. Hypertension. It is still running on the high side. We are going to add some Diovan to his regimen or valsartan for blood pressure. 4. Chronic obstructive pulmonary disease, mild exacerbation. Continue IV steroid. Continue inhaled bronchodilators. Plan is to continue current therapy. Follow up clinically. Martín Dias MD
[2018-08-07] MEDS: MethylPREDNISolone 40 mg Vial IVP SCH ×3 (05:39→22:38)
[2018-08-07 07:13] LABS: LDL CHOLESTEROL 76 mg/dL (0-129)
[2018-08-07 07:19] LABS: FREE T4 2.76 ng/dL (0.78-2.19)
[2018-08-07 07:33] LABS: ALB/GLOB RATIO 1.2 (1.1-1.8); ALBUMIN 3.4 g/dL (3.0-4.8); ALT/SGPT 32 U/L (7-56); AST/SGOT 36 U/L (17-59); BLOOD UREA NITROGEN 23 mg/dL (7-21); CALCIUM 8.6 mg/dL (8.4-10.5); GFR NON-AFRICAN AMERICAN > 60; HDL CHOLESTEROL 35 mg/dL (29-60)
[2018-08-07] MEDS: Budesonide 0.5 mg/2 ml Inhal Susp UD IH SCH ×2 (08:18→20:16)
[2018-08-07] MEDS: Arformoterol 15 mcg/2 ml Inh Sol IH SCH ×2 (08:18→20:16)
--- NOTE | 2018-08-07 08:19 | CP.PCM.PN ---
Subjective - Date & Time of Evaluation Date of Evaluation: 08/07/18 Time of Evaluation: 08:18 - Subjective Subjective: PGY-[address] Lux, Pt had increase lethargy and tiredness x 1-2 months. Recent cold with sore throat when swallow x 1 week, resolved. Objective - Vital Signs/Intake and Output Vital Signs (last 24 hours): Temp Pulse Resp BP Pulse Ox 98.2 F 60 18 148/76 98 08/07/18 06:00 08/07/18 06:00 08/07/18 06:00 08/07/18 06:00 08/07/18 06:00 Intake and Output: 08/07/18 08/07/18 06:59 18:59 Intake Total 0 Balance 0 - Medications Medications: Current Medications Amlodipine Besylate (Norvasc) 5 mg PO DAILY [facility] Last Admin: 08/06/18 09:00 Dose: 5 mg Arformoterol Tartrate (Brovana) 15 mcg IH [id number] [facility] Last Admin: 08/07/18 08:18 Dose: 15 mcg Aspirin (Ecotrin) 81 mg PO DAILY [facility] Last Admin: 08/06/18 09:01 Dose: 81 mg Azithromycin (Zithromax) 500 mg PO DAILY [facility]; Protocol Last Admin: 08/06/18 09:01 Dose: 500 mg Budesonide (Pulmicort Respules) 0.5 mg IH BIDRESP [facility] Last Admin: 08/07/18 08:18 Dose: 0.5 mg Clopidogrel Bisulfate (Plavix) 75 mg PO DAILY [facility] Last Admin: 08/06/18 09:01 Dose: 75 mg Famotidine (Pepcid) 40 mg PO HS [facility] Last Admin: 08/06/18 21:30 Dose: 40 mg Fluticasone Propionate (Flonase) 1 actuation NS HS [facility] Last Admin: 08/06/18 21:54 Dose: Not Given Levalbuterol HCl (Xopenex) 0.63 mg IH [id number] PRN PRN Reason: Shortness of Breath Last Admin: 08/06/18 16:39 Dose: 0.63 mg Loratadine (Claritin) 10 mg PO DAILY [facility] Last Admin: 08/06/18 13:29 Dose: 10 mg Losartan Potassium (Cozaar) 25 mg PO DAILY [facility] Magnesium Oxide (Mag-Ox) 400 mg PO BID [facility] Last Admin: 08/06/18 18:51 Dose: 400 mg Methylprednisolone (Solu-Medrol) 20 mg IVP Q8 [facility] Last Admin: 08/07/18 05:39 Dose: 20 mg Metoprolol Tartrate (Lopressor) 25 mg PO BRKDIN [facility] Last Admin: 08/06/18 18:51 Dose: 25 mg Montelukast Sodium (Singulair) 10 mg PO HS [facility] Last Admin: 08/06/18 21:30 Dose: 10 mg - Labs Labs: 08/06/18 06:00 08/07/18 06:20 PT 13.6 SECONDS (9.4-12.5) H 08/04/18 18:24 INR 1.23 08/04/18 18:24 APTT 31.7 Seconds (26.9-38.3) 08/04/18 18:24 - Constitutional Appears: No Acute Distress - Head Exam Head Exam: ATRAUMATIC, NORMAL INSPECTION, NORMOCEPHALIC - Eye Exam Eye Exam: EOMI, Normal appearance, PERRL. absent: Scleral icterus Pupil Exam: NORMAL ACCOMODATION - ENT Exam ENT Exam: Mucous Membranes Moist - Neck Exam Additional comments: supple - Respiratory Exam Respiratory Exam: Clear to Ausculation Bilateral. absent: Rales, Rhonchi, Wheezes - Cardiovascular Exam Cardiovascular Exam: REGULAR RHYTHM, +S1, +S2, Murmur - GI/Abdominal Exam GI & Abdominal Exam: Soft, Normal Bowel Sounds. absent: Tenderness - Extremities Exam Extremities Exam: absent: Calf Tenderness, Tenderness - Neurological Exam Neurological Exam: Alert, Awake, Oriented x3 - Psychiatric Exam Psychiatric exam: Normal Affect, Normal Mood - Skin Skin Exam: Dry, Warm Assessment and Plan - Assessment and Plan (Free Text) Plan: Mr Garcia, 68M, active smoker with Hx COPD, admitted for dyspnea, hypoxemia, likely COPD exacerbation. He had a recent cold with sore throat 1 week ago. He had chest pain and elevated troponin @ 0.07 pending cardiac catheterization at 11:30am, on solumedrl 20q8h, referred for abnormal thyroid Focal eythyroid hyperthyroxinemia vs steroid induce transient TSH suppression vs overt hyperthyroidism from underlying graves or autoimmune thyroiditis - Repeat TFT: suppressed TSH, elevated free t4, elevated total t4 at 13 - will repeat TFT tomorrow - Pending thyroid stimulating Ig and thyroid peroxidase ab - thyroid u/s: heterogeneous, mild hypervascular gland. No focal abnormality. No nodules - A1c 5.7 Update: Pt received PCI and JUAN at [facility] s/r/d/w Dr Lux
[2018-08-07] MEDS: Magnesium Oxide 400 mg Tab UD PO SCH ×2 (09:04→17:39)
[2018-08-07] MEDS ORDERED: Lidocaine PF 2% (5 ml) Inj (For Cardiac Arrhy) ONE (12:15)
[2018-08-07] MEDS ORDERED: Nitroglycerin 50mg in D5W 50 MG/250 ML BOTTLE IV ONE (12:16)
[2018-08-07] MEDS ORDERED: Iodixanol 320 MG/ML 200 ML BOTTLE IV ONE (12:16)
[2018-08-07] MEDS ORDERED: Heparin 2,000 ML IV ONE (12:16)
--- NOTE | 2018-08-07 13:14 | CP.PCM.PN ---
Subjective - Date & Time of Evaluation Date of Evaluation: 08/07/18 Time of Evaluation: 06:55 - Subjective Subjective: Awake, alert, no distress Reason for consultation and follow up: Cardiac evaluation of dyspnea on exertion, positive troponin, history of moderate to severe aortic stenosis Seen and Examined by me and Dr. Gonzalez Objective - Vital Signs/Intake and Output Vital Signs (last 24 hours): Temp Pulse Resp BP Pulse Ox 98.2 F 60 18 148/76 98 08/07/18 06:00 08/07/18 10:00 08/07/18 06:00 08/07/18 06:00 08/07/18 06:00 Intake and Output: 08/07/18 08/07/18 06:59 18:59 Intake Total 0 Balance 0 - Medications Medications: Current Medications Amlodipine Besylate (Norvasc) 5 mg PO DAILY [facility] Last Admin: 08/07/18 09:03 Dose: 5 mg Arformoterol Tartrate (Brovana) 15 mcg IH [id number] [facility] Last Admin: 08/07/18 08:18 Dose: 15 mcg Aspirin (Ecotrin) 81 mg PO DAILY [facility] Last Admin: 08/07/18 09:03 Dose: 81 mg Azithromycin (Zithromax) 500 mg PO DAILY [facility]; Protocol Last Admin: 08/07/18 09:03 Dose: 500 mg Budesonide (Pulmicort Respules) 0.5 mg IH BIDRESP [facility] Last Admin: 08/07/18 08:18 Dose: 0.5 mg Clopidogrel Bisulfate (Plavix) 75 mg PO DAILY [facility] Last Admin: 08/07/18 09:03 Dose: 75 mg Famotidine (Pepcid) 40 mg PO HS [facility] Last Admin: 08/06/18 21:30 Dose: 40 mg Fluticasone Propionate (Flonase) 1 actuation NS HS [facility] Last Admin: 08/06/18 21:54 Dose: Not Given Levalbuterol HCl (Xopenex) 0.63 mg IH [id number] PRN PRN Reason: Shortness of Breath Last Admin: 08/06/18 16:39 Dose: 0.63 mg Loratadine (Claritin) 10 mg PO DAILY [facility] Last Admin: 08/07/18 10:07 Dose: Not Given Losartan Potassium (Cozaar) 25 mg PO DAILY [facility] Last Admin: 08/07/18 09:03 Dose: 25 mg Magnesium Oxide (Mag-Ox) 400 mg PO BID [facility] Last Admin: 08/07/18 09:04 Dose: Not Given Methylprednisolone (Solu-Medrol) 20 mg IVP Q8 [facility] Last Admin: 08/07/18 05:39 Dose: 20 mg Metoprolol Tartrate (Lopressor) 25 mg PO BRKDIN [facility] Last Admin: 08/07/18 09:03 Dose: 25 mg Montelukast Sodium (Singulair) 10 mg PO HS [facility] Last Admin: 08/06/18 21:30 Dose: 10 mg - Labs Labs: 08/06/18 06:00 08/07/18 06:20 PT 13.6 SECONDS (9.4-12.5) H 08/04/18 18:24 INR 1.23 08/04/18 18:24 APTT 31.7 Seconds (26.9-38.3) 08/04/18 18:24 - Constitutional Appears: Non-toxic, No Acute Distress - Head Exam Head Exam: NORMAL INSPECTION, NORMOCEPHALIC - Eye Exam Eye Exam: Normal appearance Pupil Exam: NORMAL ACCOMODATION - ENT Exam ENT Exam: Mucous Membranes Moist, Normal Exam - Respiratory Exam Respiratory Exam: Decreased Breath Sounds, Clear to Ausculation Bilateral, NORMAL BREATHING PATTERN - Cardiovascular Exam Cardiovascular Exam: REGULAR RHYTHM, +S1, +S2 - GI/Abdominal Exam GI & Abdominal Exam: Soft, Normal Bowel Sounds - Extremities Exam Extremities Exam: Full ROM, Normal Capillary Refill - Neurological Exam Neurological Exam: Alert, Awake, Oriented x3 - Psychiatric Exam Psychiatric exam: Normal Affect, Normal Mood - Skin Skin Exam: Dry, Normal Color, Warm Assessment and Plan - Assessment and Plan (Free Text) Assessment: A 68 year old male who came to the ER for shortness of breath and chest pain. Troponin result outside of [facility] showed 1.13. Troponin on admission 0.07/0.05/0.05. History of non ST segment myocardial infarction, COPD, active tobacco abuse, hypertension,hyperlipidemia, osteoarthritis,compression fracture, osteoporosis. Echo done on 08/05/18 showed LVEF 60%,moderate to severe aortic stenosis VIVIANE 1.0 cm2, modertae to severe aortic regurgitation, mild MR/TR RVSP 43 mmHg, mild pulmonary hypertension. Schedule for cardiac cath today.Denies chest pain or shortness of breath. Plan: For cardiac cath today Denies chest pain or shortness of breath Heart rate stable Blood pressure stable On ASA 81 mg daily, Norvasc 5 mg daily,Cozaar 25 mg daily Solumedrol 20 mg IV every 8 hours Continue current treatment Further recommendations post cath Smoking cessation Will follow up Plan and treatment discussed with Dr. Gonzalez
[2018-08-07] MEDS ORDERED: Midazolam 2 MG/2 ML VIAL ONE (13:32)
[2018-08-07] MEDS ORDERED: Eptifibatide 20 mg/10mL Inj IVP ONE (13:52)
--- NOTE | 2018-08-07 14:15 | PN ---
DATE: 08/07/2018 REFERRING PHYSICIAN: Dr. Dias. SUBJECTIVE: The patient is seen sitting up in the bed. No acute distress. No overnight events reported. The patient is for possible cardiac cath today. He reports that he still is having productive cough. No headache, rhinitis, shortness of breath, chest pain, abdominal pain, nausea, vomiting, diarrhea, leg pain, or leg swelling reported. OBJECTIVE: VITAL SIGNS: Blood pressure 148/76, pulse 60, temperature 98.2, oxygen saturation 98% on room air. GENERAL: No acute distress. HEENT: Moist mucous membranes. Mallampati score of 4. NECK: Supple. No JVD. RESPIRATORY: Few scattered rhonchi bilaterally. CARDIOVASCULAR: S1 and S2. ABDOMEN: Soft and nontender. No distention. No organomegaly. EXTREMITIES: No bilateral lower extremity edema. NEUROLOGIC: Awake, alert and verbal. Following commands. MEDICATIONS: Reviewed. Norvasc 5 mg daily, Brovana 15 mcg inhalation every 12 hours, aspirin 81 mg daily, Zithromax 500 mg daily, Pulmicort 0.5 mg inhalation twice a day, Plavix 75 mg daily, Pepcid 40 mg at bedtime, Flonase nasal spray at bedtime, Xopenex 0.63 mg inhalation every 6 hours p.r.n., Claritin 10 mg daily, losartan 25 mg daily, magnesium oxide 400 mg twice a day, Solu-Medrol 20 mg IV push every 8 hours, metoprolol tartrate 25 mg at breakfast and dinner, Singulair 10 mg at bedtime. LABORATORY DATA: Reviewed. Sodium 140, potassium 4.6, chloride 108, carbon dioxide 27, anion gap 10, BUN 23, creatinine 0.8, GFR greater than 60, random glucose 118, hemoglobin A1c 5.7, calcium 8.6, total bilirubin 0.2, AST 36, ALT 32, alkaline phosphatase 47, total protein 6.2, albumin 3.4, globulin 3.8, albumin-globulin ratio 1.2, triglycerides 87, cholesterol 132, LDL cholesterol 76, HDL cholesterol 35. Free T4 of 2.76, thyroxin 13.3, TSH less than 0.02. Blood cultures preliminary no growth up to 48 hours. IMPRESSION AND PLAN: Chronic obstructive pulmonary disease exacerbation, heart failure, valvular heart disease, emphysema, hypertension, mild pulmonary hypertension, we do suspect sleep apnea in this patient. Sleep apnea precaution. Head of the bed elevated at 45 degrees. Recommend close cardiopulmonary monitoring while sedated. Continue inhaled bronchodilators, deep venous thrombosis prophylaxis, gastric prophylaxis. Continue antibiotic therapy. The patient pending cardiac catheterization today. Recommend the patient to have sleep study as outpatient to evaluate sleep apnea syndrome. We are going to have the patient full pulmonary function test as outpatient to assess extent of chronic lung disease. This patient was seen and examined with Dr. Nieto. Discussed assessment and plan as described above. This patient was seen and examined with Wallace Reed, nurse practitioner. Discussed assessment and plan as described above. Thank you for this consult and we will follow with you. Wallace Reed APN Don Nieto MD
[2018-08-07] MEDS ORDERED: Iodixanol 320 MG/ML 100 ML BOTTLE IV ONE (14:29)
[2018-08-07] MEDS ORDERED: Sodium Chloride 0.9% 1,000 ML IV SCH (15:00)
--- NOTE | 2018-08-07 15:05 | PN ---
DATE: 08/07/2018 LOCATION: Room 366. SUBJECTIVE: This is a 68-year-old male admitted with acute exacerbation of COPD, currently on IV steroid therapy and is now being followed closely also for metabolic management of abnormal thyroid function studies. His repeat thyroid studies showed a total T4 or thyroxine level of 13.3 with a free T4 of 2.76 and a TSH of less than 0.02. The patient remains hemodynamically stable with no evidence of any sinus tachycardia at this time. He has also no overt manifestations related to any hyperadrenergic or constitutional symptoms of hyperthyroidism. He remains clinically euthyroid at this time. ASSESSMENT: This is a 68-year-old male with acute exacerbation of chronic obstructive pulmonary disease on intravenous steroid therapy at this time and also had elevated troponin levels and currently scheduled for a cardiac catheterization procedure today as noted. He also had a previous upper respiratory infection prior to this admission. The possibility always of an acute sick euthyroid syndrome, especially with the intercurrent intravenous steroid therapy which can cause further thyroid-stimulating hormone suppression and elevated free T4 level is the most plausible diagnostic concern at this time. PLAN OF MANAGEMENT: As the patient remains clinically euthyroid with no hemodynamic evidence of any hyperadrenergic or constitutional manifestations of hyperthyroidism, we will hold off any kind of thyroid pharmacotherapy at this time. We would expect improvement of his thyroid indices as his clinical status improves accordingly. We would, however, repeat the thyroid studies on the outpatient in 2 to 3 months to observe and determine whether he has normalized his thyroid function studies and if TSH suppression persists, then may consider the presence of subclinical hyperthyroidism and also the initiation of medical therapy accordingly. We will follow. Trang Lux MD
--- NOTE | 2018-08-07 15:59 | CPOSTOP ---
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 TYPE OF ANESTHESIA: Moderate conscious sedation. Total 3 mg of Versed, 150 of fentanyl given periodically. Started 1 mg of Versed and 50 of fentanyl. PRE-PROCEDURE DIAGNOSES: Unstable angina, acute coronary syndrome, aortic stenosis. PROCEDURES PERFORMED: Left heart catheterization, right heart catheterization, and stenting of proximal LAD. FINDINGS: No significant gradient across the aortic valve noted. Preserved LV function ejection fraction of 55%. Right heart catheterization revealed, mildly elevated; proximal LAD 80% to 90% stenosis; mid LAD chronic total occlusion. FINAL DIAGNOSES: One vessel critical disease. No significant gradient across the aortic valve (no significant aortic stenosis, one vessel coronary artery disease, mildly elevated right heart catheterization). POST PROCEDURE CONDITION: The patient's condition is stable. VASCULAR ACCESS SITE: Right femoral groin. CLOSURE DEVICE: Mynx in right femoral artery and Mynx in right femoral vein. TOTAL RADIATION DOSE: 04707.2 milligray unit. CUMULATIVE DOSE: 2621 milligray unit. TOTAL FLUORO TIME: 14.7 minutes. Don Gonzalez MD
[2018-08-07 18:28] VITALS: RESP 20; O2SAT 94
[2018-08-07 20:37] LABS: BASO # 0.01 K/mm3 (0.0-2.0); BASO % 0.1 % (0.0-3.0); EOS % 0.1 % (1.5-5.0); HEMOGLOBIN 11.7 g/dL (14.0-18.0); LYMPH % 30.4 % (22.0-35.0); MEAN CELL VOLUME 86.7 fl (80.0-105.0); MEAN CORPUSCULAR HEMOGLOBIN 28.2 pg (25.0-35.0); MEAN CORPUSCULAR HGB CONC 32.5 g/dl (31.0-37.0); MEAN PLATELET VOLUME 9.6 fl (7.0-11.0); MONO # 1.8 (0.1-0.6); MONO % 13.4 % (1.0-6.0); RBC 4.15 10^6/uL (3.5-6.1); RED CELL DISTRIBUTION WIDTH 12.3 % (11.5-14.5); WHITE BLOOD COUNT 13.2 10^3/uL (4.5-11.0)
[2018-08-07 20:46] LABS: BLOOD UREA NITROGEN 24 mg/dL (7-21); CALCIUM 8.2 mg/dL (8.4-10.5); GFR NON-AFRICAN AMERICAN > 60
--- NOTE | 2018-08-07 22:24 | CARD ---
APPROVED REPORT Date of service: 08/07/2018 Procedure(s) performed: Complete Heart Catheterization PTCA with Stenting of Proximal LAD with JUAN HISTORY The patient is a 68 year-old male with a history of : most recent EF: 60%. (EF Method: Echocardiogram), chronic lung disease, tobacco history() : The patient is a current smoker , hypertension , Hx of Moderate , COPD, admitted with Unstable angina positive troponin as out pt 0.13 on 07/30/2018. Moderate to severe and AR.. INDICATION The indication(s) include : unstable angina , non-STEMI . CASE TECHNIQUE The patient was brought urgently to the Cardiac Catheterization Laboratory in a fasting state and was prepped and draped in a sterile manner. The right femoral groin was infiltrated with 2% Lidocaine subcutaneous anesthesia. A sheath was inserted into the right femoral artery without difficulty. Coronary angiography was performed using coronary diagnostic catheters. The left coronary system was accessed and visualized with a Diagnostic,6 Fr JL 4 catheter. The right coronary system was accessed and visualized with a Diagnostic ,5 Fr 3DRC catheter. The left ventricle was accessed and visualized with a 6 Fr Dual Lumen Pigtail catheter. Left ventricular/Aortic Valve gradient assessed on pullback. Left ventriculogram was performed in CARVER projection. A Right Heart Catheterization was performed with a 7 Fr. Kempner-Bibiana catheter and pressure were recorded. A 7 sheath was inserted into the right femoral vein without difficulty. Coronary angiography was performed using coronary diagnostic catheters. Cardiac outputs were obtained by the Thermal Dilution method. Pre-demployment femoral angiogram was performed . The patient tolerated the procedure well and there were no complications associated with the procedure. Vessel Analysis The patient's coronary anatomy is right dominant. The left main coronary artery is a medium size vessel with diffuse calcification noted throughout this vessel and without significant stenosis. The left main bifurcates to the left anterior descending and circumflex. The left anterior descending artery is a medium size vessel with diffuse calcification noted throughout this vessel and with significant stenosis. There is a 100% stenosis in the mid segment. proximal LAD 80-90% stenosis and Mid LAD FIELD OPERATIONS TECHNICIAN , before FIELD OPERATIONS TECHNICIAN gives three diagonals, Distla LAD is severely atherosclerotic like athread and collateralized from RCA. The first diagonal branch is a medium size vessel with diffuse calcification noted throughout this vessel and without significant stenosis. The second diagonal branch is a medium size vessel with diffuse calcification noted throughout this vessel and without significant stenosis. The third diagonal branch is a medium size vessel with diffuse calcification noted throughout this vessel and without significant stenosis. The circumflex artery is a medium size vessel with diffuse calcification noted throughout this vessel and without significant stenosis. The first obtuse marginal branch is a small size vessel with diffuse calcification noted throughout this vessel and with significant stenosis. There is a 60-70% stenosis . The second obtuse marginal branch is a medium size vessel with diffuse calcification noted throughout this vessel and without significant stenosis. The right coronary artery is a large size vessel with diffuse calcification noted throughout this vessel and without significant stenosis. The right posterior descending artery is a medium size vessel with diffuse calcification noted throughout this vessel and without significant stenosis. The right posterolateral branch is a medium size vessel with diffuse calcification noted throughout this vessel and without significant stenosis. RCA gives collaterals to distal LAD which is severely atherosclerotic not suitable for CABG. Left Ventricle The left ventricle is Borderline in size with low normal contractility. The left ventricular ejection fraction is estimated to be 50-55%. The left ventricular end diastolic pressure is 16 mmHg. Maximum Gradient 4 mm on simultaneous and as well as Pull back ( using double lumen catheter). Right Heart Cath Findings The Right Atrial Pressure is 4-5 mmHg. The Right Ventricular Pressure is 41/9 mmHg. The Pulmonary Artery Pressure is 40/16 mmHg. mean of25 The Pulmonary Catheter Wedge Pressure is 15 mmHg. PVR 2.6 Wood units. The cardiac output and index were assessed using thermo dilution. The Cardiac Output is 4.87 L/min. The Cardiac index is 2.68 L/min/m2. Valves The peak gradient across the aortic valve is 4 mm mmHg. Aortic stenosis is not present. PCI Technique Lesion Anticoagulation was achieved with Heparin and Integrellin bolluses. Percutaneous coronary intervention was performed on the proximal left anterior descending artery segment. The lesion stenosis prior to intervention was 80-90% with LUZ 2 flow. A 6 Fr XB 3.5 Guide Catheter was used to engage the ostium. A Luge 182 Interventional Guidewire was used to cross the lesion. BALLOON DILATION A Balloon catheter 2.5 x 12 mm Sprinter RX was inserted and inflated up to 12.00atm for 13seconds. STENT DEPLOYMENT A drug-eluting stent STENT RESOLUTE MERY 2.5 X15 was inserted and inflated up to 14.00atm for 15seconds. POST STENT DEPLOYMENT BALLOON DILATION A Balloon catheter 2.75 x 9 mm Sprinter NC was inserted and inflated up to 16.00atm for 35seconds. Final angiography reveals 0 % stenosis with LUZ 3 flow. Conclusion One vessel critical disease, Proximal LAD 80-90%, Mid FIELD OPERATIONS TECHNICIAN, and distal LAD is diffusely diseased dunia thread and collateralided from RCA and suitable for CABG, Proximal to Mid LAD before FIELD OPERATIONS TECHNICIAN gives three medium sized Diagonals. Low normal LV Fx.EF-50-55%, EDP16 mmof Hg RHC; RA-4-5, RV-41/9, PA-40/16 with a meanof 25, PCW-15, CO_4.87, CI-2.62, PVR-2.6 4 mm gradient on simultaneous LV/AO By echo moderate to severe /AR Successful PTCA with JUAN of Proxmial LAD to portect Diagonals circulations done. Recommendations Smoking Cessation Daily ASA with Plavix for at least one year Aggressive Medical TherapyCardiac Risk Reduction Program Weight Loss Reduction Program F/u SUSANNE in 6 months to 0ne year to assess AorticValve especially AR. CC; Manasa Rebollar MD
--- NOTE | 2018-08-07 22:26 | CARD ---
APPROVED REPORT Date of service: 08/07/2018 EKG Measurement Heart [id number] <Conclusion> Normal sinus rhythm with sinus arrhythmia Left anterior fascicular block Abnormal ECG
[2018-08-07] MEDS: Fluticasone Nasal 50 mcg/Spray NS SCH (22:39)
--- NOTE | 2018-08-08 00:50 | PN ---
DATE: 08/07/2018 SUBJECTIVE: The patient is status post cardiac cath, stable. No chest pain. No short of breath. The patient otherwise stable. PHYSICAL EXAMINATION VITAL SIGNS: Temperature 98, heart rate 71, blood pressure is 113/61, respirations 18, saturation 95% on room air. HEAD AND NECK: Normal. No JVD. No thyromegaly. CHEST: Clear bilateral. CARDIOVASCULAR: First sound and second sound normal. No murmur, rub, or gallop. ABDOMEN: Soft and nontender. EXTREMITIES: No edema. NEUROLOGIC: Normal. LABORATORY DATA: White count 13.2, hemoglobin 11.7, hematocrit 36, platelets 275. Chemistry; sodium 140, potassium 4.6, chloride 108, bicarb 27, BUN 23, creatinine 0.8, blood sugar 118. Liver function test is normal. IMPRESSION: 1. Acute non-ST elevation myocardial infarction status post cardiac catheterization, proximal left anterior descending above 90% stenosis has been stented successfully with no complications. There is distal left anterior descending with good collaterals. 2. Chronic obstructive pulmonary disease with mild exacerbation. Continue steroid and inhaled bronchodilators. 3. Hypertension, stable. Continue current blood pressure medications. PLAN: Continue current therapy. Followup clinically for his hypercholesterolemia, continue Lipitor, increase the dose and continue Plavix, Solu-Medrol, Zithromax, Xopenex, metoprolol, Flonase, Cozaar 25 mg, Brovana, and aspirin 81 mg. Martín Dias MD
[2018-08-08] MEDS: MethylPREDNISolone 40 mg Vial IVP SCH (05:24)
[2018-08-08 07:12] LABS: BASO # 0.01 K/mm3 (0.0-2.0); BASO % 0.1 % (0.0-3.0); HEMOGLOBIN 12.3 g/dL (14.0-18.0); LYMPH # 2.3 (1.2-3.4); LYMPH % 18.5 % (22.0-35.0); MEAN CORPUSCULAR HEMOGLOBIN 27.8 pg (25.0-35.0); MEAN CORPUSCULAR HGB CONC 32.4 g/dl (31.0-37.0); MEAN PLATELET VOLUME 10.2 fl (7.0-11.0); MONO # 1.1 (0.1-0.6); MONO % 8.5 % (1.0-6.0); RBC 4.42 10^6/uL (3.5-6.1); RED CELL DISTRIBUTION WIDTH 12.3 % (11.5-14.5); WHITE BLOOD COUNT 12.4 10^3/uL (4.5-11.0)
[2018-08-08] MEDS: Budesonide 0.5 mg/2 ml Inhal Susp UD IH SCH (07:16)
[2018-08-08] MEDS: Arformoterol 15 mcg/2 ml Inh Sol IH SCH (07:16)
[2018-08-08 07:31] LABS: FREE T4 2.51 ng/dL (0.78-2.19)
[2018-08-08 07:32] LABS: BLOOD UREA NITROGEN 19 mg/dL (7-21); CALCIUM 8.4 mg/dL (8.4-10.5); GFR NON-AFRICAN AMERICAN > 60
--- NOTE | 2018-08-08 07:59 | CP.PCM.PN ---
Subjective - Date & Time of Evaluation Date of Evaluation: 08/08/18 Time of Evaluation: 06:35 - Subjective Subjective: Awake, alert, no distress, denies chest pain Reason for consultation and follow up: Cardiac evaluation of dyspnea on exertion, positive troponin, history of moderate to severe aortic stenosis, post cardiac catheterization Seen and Examined by me and Dr. Gonzalez Objective - Vital Signs/Intake and Output Vital Signs (last 24 hours): Temp Pulse Resp BP Pulse Ox 98.2 F 60 20 118/52 L 94 L 08/07/18 15:05 08/08/18 06:00 08/07/18 22:00 08/07/18 22:00 08/07/18 18:20 Intake and Output: 08/08/18 08/08/18 06:59 18:59 Intake Total 700 Output Total 3 Balance 697 - Medications Medications: Current Medications Amlodipine Besylate (Norvasc) 5 mg PO DAILY [facility] Last Admin: 08/07/18 09:03 Dose: 5 mg Arformoterol Tartrate (Brovana) 15 mcg IH [id number] [facility] Last Admin: 08/08/18 07:16 Dose: 15 mcg Aspirin (Ecotrin) 81 mg PO DAILY [facility] Last Admin: 08/07/18 09:03 Dose: 81 mg Azithromycin (Zithromax) 500 mg PO DAILY [facility]; Protocol Last Admin: 08/07/18 09:03 Dose: 500 mg Budesonide (Pulmicort Respules) 0.5 mg IH BIDRESP [facility] Last Admin: 08/08/18 07:16 Dose: 0.5 mg Clopidogrel Bisulfate (Plavix) 75 mg PO DAILY [facility] Last Admin: 08/07/18 09:03 Dose: 75 mg Famotidine (Pepcid) 40 mg PO HS [facility] Last Admin: 08/07/18 22:39 Dose: 40 mg Fluticasone Propionate (Flonase) 1 actuation NS HS [facility] Last Admin: 08/07/18 22:39 Dose: Not Given Levalbuterol HCl (Xopenex) 0.63 mg IH [id number] PRN PRN Reason: Shortness of Breath Last Admin: 08/06/18 16:39 Dose: 0.63 mg Loratadine (Claritin) 10 mg PO DAILY [facility] Last Admin: 08/07/18 10:07 Dose: Not Given Losartan Potassium (Cozaar) 25 mg PO DAILY [facility] Last Admin: 08/07/18 09:03 Dose: 25 mg Magnesium Oxide (Mag-Ox) 400 mg PO BID [facility] Last Admin: 08/07/18 17:39 Dose: 400 mg Methylprednisolone (Solu-Medrol) 20 mg IVP Q8 [facility] Last Admin: 08/08/18 05:24 Dose: 20 mg Metoprolol Tartrate (Lopressor) 25 mg PO BRKDIN [facility] Last Admin: 08/07/18 17:39 Dose: 25 mg Montelukast Sodium (Singulair) 10 mg PO HS [facility] Last Admin: 08/07/18 22:38 Dose: 10 mg Nicotine (Nicoderm Cq) 1 patch TD DAILY [facility] - Labs Labs: 08/08/18 06:30 08/08/18 06:30 PT 13.6 SECONDS (9.4-12.5) H 08/04/18 18:24 INR 1.23 08/04/18 18:24 APTT 31.7 Seconds (26.9-38.3) 08/04/18 18:24 - Constitutional Appears: Non-toxic, No Acute Distress - Head Exam Head Exam: NORMAL INSPECTION, NORMOCEPHALIC - Eye Exam Eye Exam: Normal appearance Pupil Exam: NORMAL ACCOMODATION - ENT Exam ENT Exam: Mucous Membranes Moist, Normal Exam - Neck Exam Neck Exam: Full ROM, Normal Inspection - Respiratory Exam Respiratory Exam: Clear to Ausculation Bilateral, NORMAL BREATHING PATTERN - Cardiovascular Exam Cardiovascular Exam: REGULAR RHYTHM, +S1, +S2 - GI/Abdominal Exam GI & Abdominal Exam: Soft, Normal Bowel Sounds - Extremities Exam Extremities Exam: Full ROM, Normal Capillary Refill - Neurological Exam Neurological Exam: Alert, Awake, Oriented x3 - Psychiatric Exam Psychiatric exam: Normal Affect, Normal Mood - Skin Skin Exam: Dry, Normal Color, Warm Assessment and Plan - Assessment and Plan (Free Text) Assessment: A 68 year old male who came to the ER for shortness of breath and chest pain. Troponin result outside of [facility] showed 1.13. Troponin on admission 0.07/0.05/0.05. History of non ST segment myocardial infarction, COPD, active t obacco abuse, hypertension,hyperlipidemia, osteoarthritis,compression fracture, osteoporosis. Echo done on 08/05/18 showed LVEF 60%,moderate to severe aortic stenosis VIVIANE 1.0 cm2, moderate to severe aortic regurgitation, mild MR/TR RVSP 43 mmHg, mild pulmonary hypertension. Post cardiac cath yesterday and showed one vessel critical disease of Proximal LAD 80-90%, Mid LAD totally occluded (CUSTOMER CONTACT SALES ASSOCIATE), and distal LAD diffusely diseased like a thread and with collaterals from RCA and suitable for coronary artery bypass grafting, proxima lto mid LAD before CUSTOMER CONTACT SALES ASSOCIATE gives three medium sized diagonals. LVEF 50-55%. Successful PTCA with JUAN of proximal LAD to protect diagonal circulation. 4mm gradient on simultaneous LV/AO by Echo moderate to severe /AR due to calcifications. Continue Aspirin and plavix for at least a year. Denies chest pain, denies shortness of breath. May discharge from cardiac standpoint. Discontinue telemetry. Plan: Denies chest pain , denies shortness of breath Post cardiac cath/PTCA of proximal LAD Continue Plavix and ASA for at least a year Discontinue telemetry May discharge from cardiac standpoint Follow up in office 2-3 weeks Cardiac status stable Heart rate stable Blood pressure stable On ASA 81 mg daily, Norvasc 5 mg daily,Cozaar 25 mg daily Plavix 75 mg daily,Lopressor 25 mg BID, Nicotine patch Continue current treatment Smoking cessation Plan and treatment discussed with Dr. Gonzalez
[2018-08-08] MEDS: Magnesium Oxide 400 mg Tab UD PO SCH (10:11)
--- NOTE | 2018-08-08 10:42 | CP.PCM.PN ---
Subjective - Date & Time of Evaluation Date of Evaluation: 08/08/18 Time of Evaluation: 10:42 - Subjective Subjective: PGY-3 for Viktor Peguero. Pt resting in bed, ready to go home. Denies shaking, palpitation, heat/cold intolerance, f/c, cp, sob, other complaints Objective - Vital Signs/Intake and Output Vital Signs (last 24 hours): Temp Pulse Resp BP Pulse Ox 98.2 F 63 20 132/79 94 L 08/07/18 15:05 08/08/18 10:11 08/07/18 22:00 08/08/18 10:11 08/07/18 18:20 Intake and Output: 08/08/18 08/08/18 06:59 18:59 Intake Total 700 Output Total 3 Balance 697 - Medications Medications: Current Medications Amlodipine Besylate (Norvasc) 5 mg PO DAILY [facility] Last Admin: 08/08/18 10:11 Dose: 5 mg Arformoterol Tartrate (Brovana) 15 mcg IH [id number] [facility] Last Admin: 08/08/18 07:16 Dose: 15 mcg Aspirin (Ecotrin) 81 mg PO DAILY [facility] Last Admin: 08/08/18 10:11 Dose: 81 mg Azithromycin (Zithromax) 500 mg PO DAILY [facility]; Protocol Last Admin: 08/08/18 10:11 Dose: 500 mg Budesonide (Pulmicort Respules) 0.5 mg IH BIDRESP [facility] Last Admin: 08/08/18 07:16 Dose: 0.5 mg Clopidogrel Bisulfate (Plavix) 75 mg PO DAILY [facility] Last Admin: 08/08/18 10:09 Dose: 75 mg Famotidine (Pepcid) 40 mg PO HS [facility] Last Admin: 08/07/18 22:39 Dose: 40 mg Fluticasone Propionate (Flonase) 1 actuation NS HS [facility] Last Admin: 08/07/18 22:39 Dose: Not Given Levalbuterol HCl (Xopenex) 0.63 mg IH [id number] PRN PRN Reason: Shortness of Breath Last Admin: 08/06/18 16:39 Dose: 0.63 mg Loratadine (Claritin) 10 mg PO DAILY [facility] Last Admin: 08/08/18 10:12 Dose: 10 mg Losartan Potassium (Cozaar) 25 mg PO DAILY [facility] Last Admin: 08/08/18 10:11 Dose: 25 mg Magnesium Oxide (Mag-Ox) 400 mg PO BID [facility] Last Admin: 08/08/18 10:11 Dose: 400 mg Methylprednisolone (Solu-Medrol) 20 mg IVP Q8 [facility] Last Admin: 08/08/18 05:24 Dose: 20 mg Metoprolol Tartrate (Lopressor) 25 mg PO BRKDIN [facility] Last Admin: 08/08/18 08:29 Dose: 25 mg Montelukast Sodium (Singulair) 10 mg PO HS [facility] Last Admin: 08/07/18 22:38 Dose: 10 mg Nicotine (Nicoderm Cq) 1 patch TD DAILY [facility] Last Admin: 08/08/18 10:12 Dose: Not Given - Labs Labs: 08/08/18 06:30 08/08/18 06:30 PT 13.6 SECONDS (9.4-12.5) H 08/04/18 18:24 INR 1.23 08/04/18 18:24 APTT 31.7 Seconds (26.9-38.3) 08/04/18 18:24 - Constitutional Appears: No Acute Distress - Head Exam Head Exam: ATRAUMATIC, NORMAL INSPECTION, NORMOCEPHALIC - Eye Exam Eye Exam: EOMI, Normal appearance, PERRL. absent: Scleral icterus Pupil Exam: NORMAL ACCOMODATION - ENT Exam ENT Exam: Mucous Membranes Moist - Neck Exam Additional comments: supple - Respiratory Exam Respiratory Exam: Clear to Ausculation Bilateral, NORMAL BREATHING PATTERN. absent: Rales, Rhonchi, Wheezes - Cardiovascular Exam Cardiovascular Exam: REGULAR RHYTHM, +S1, +S2 - GI/Abdominal Exam GI & Abdominal Exam: Soft, Normal Bowel Sounds. absent: Tenderness - Extremities Exam Extremities Exam: absent: Calf Tenderness, Pedal Edema Additional comments: fernandes intact - Back Exam Back Exam: absent: CVA tenderness (L), CVA tenderness (R) - Neurological Exam Neurological Exam: Alert, Awake, Oriented x3 - Psychiatric Exam Psychiatric exam: Normal Affect, Normal Mood - Skin Skin Exam: Dry, Warm Assessment and Plan - Assessment and Plan (Free Text) Plan: Mr Garcia, 68M, active smoker with Hx COPD, admitted for dyspnea, hypoxemia, li salvatore COPD exacerbation. He had a recent cold with sore throat 1 week ago. He had chest pain and elevated troponin @ 0.07. Cardiac catheterization showed critical stenosis at LAD, got JUAN. He is on solumedrl 20q8h for COPD. He was referred for abnormal thyroid. Pt had increase lethargy and tiredness x 1-2 months. Recent cold with sore throat when swallow x 1 week, resolved. Focal eythyroid hyperthyroxinemia vs steroid induce transient TSH suppression vs overt hyperthyroidism from underlying graves or autoimmune thyroiditis - Repeat TFT x 2: suppressed TSH: < 0.02 x 3 elevated free t4: 3.6, 2.7. 2.5 elevated total t4: 13, 11.6 - Pending thyroid stimulating Ig and thyroid peroxidase ab - thyroid u/s: heterogeneous, mild hypervascular gland. No focal abnormality. No nodules A1c 5.7 Plan - Likely sick euthyroid. Hold thyroid medicine. Outpatient repeat thyroid function test 2-3 month s/r/d/w Dr Lux
--- NOTE | 2018-08-08 12:18 | PN ---
DATE: 08/08/2018 PULMONARY PROGRESS NOTE REFERRING PHYSICIAN: Martín Dias MD SUBJECTIVE: The patient is seen sitting in armchair. No acute distress. No overnight events reported. The patient reports feeling well today. States that he has no cough today. No headache, rhinitis, shortness of breath, chest pain, abdominal pain, nausea, vomiting, diarrhea, leg pain, or leg swelling reported. The patient is status post left and right heart catheterization with stenting to the proximal LAD. OBJECTIVE: GENERAL: No acute distress. VITAL SIGNS: Blood pressure 132/79, pulse 63, oxygen saturation 95% on room air, temperature 98.2. HEENT: Moist mucous membranes. Mallampati score of 4. NECK: Supple. No JVD. RESPIRATORY: Fair airflow bilaterally. CARDIOVASCULAR: S1 and S2. ABDOMEN: Soft and nontender. No distention. No organomegaly. EXTREMITIES: No bilateral lower extremity edema. NEUROLOGICAL: Awake, alert and verbal. Following commands. MEDICATIONS: Reviewed. Norvasc 5 mg daily, Brovana 15 mcg inhalation every 12 hours, aspirin 81 mg daily, Zithromax 500 mg daily, Pulmicort 0.5 mg inhalation twice a day, Plavix 75 mg daily, Pepcid 40 mg at h.s., Flonase nasal spray at bedtime, Xopenex 0.63 mg inhalation every 6 hours p.r.n., Claritin 10 mg daily, Cozaar 25 mg daily, magnesium oxide 400 mg twice a day, Solu-Medrol 20 mg every 8 hours, Lopressor 25 mg at breakfast and dinner, Singulair 10 mg at bedtime, nicotine patch transdermal daily. LABORATORY DATA: Reviewed. WBC 12.4, RBC 4.42, hemoglobin 12.3, hematocrit 38, platelets 301. Sodium 140, potassium 4.8, chloride 108, carbon dioxide 26, anion gap 11, BUN 19, creatinine 0.8, GFR greater than 60, random glucose 117, calcium 8.4. Free T4 2.51, thyroxine 11.6, TSH less than 0.02. Blood cultures preliminary, no growth after 3 days. EKG shows normal sinus rhythm with sinus arrhythmia. Cardiac cath revealed the patient had ejection fraction of 55%, proximal LAD showed 80-90% stenosis, mild LAD chronic total occlusion. IMPRESSION AND PLAN: Chronic obstructive pulmonary disease with exacerbation, heart failure, valvular heart disease, emphysema, hypertension, mild pulmonary hypertension, obstructive sleep apnea syndrome in this patient. The patient is status post left and right heart catheterization with stenting in the proximal left anterior descending artery. The patient, pending discharge home today, per nursing staff. Prescriptions given to nurse for the patient to continue Zithromax 500 mg daily for five days and for Medrol Dosepak as directed. We recommend this patient to have sleep apnea as outpatient to evaluate sleep apnea syndrome. Recommend the patient have full pulmonary function test as outpatient to assess the extent of chronic lung disease. The patient was seen and examined with Dr. Nieto. Discussed assessment and plan as described above. The patient was seen and examined with Wallace Reed, nurse practitioner. Discussed assessment and plan as described above. Thank you for this consult. We will follow with you. Wallace Reed APN Don Nieto MD
[2018-08-08 13:22] VITALS: BP 119/74; PULSE 67; TEMP 98.6
--- NOTE | 2018-08-08 14:37 | PN ---
DATE: 08/08/2018 LOCATION: Room 366. SUBJECTIVE: This is a 68-year-old male presenting here with sudden onset of shortness of breath and precordial chest pain with elevated troponin levels and was evaluated to have an acute myocardial ischemic process and underwent a cardiac cath yesterday with subsequent coronary stent placement in the LAD as noted. He remains clinically euthyroid and biochemically had elevated thyroxine levels as noted with a suppressed TSH otherwise. His latest chemistry showed a BUN of 19, sodium 140, potassium 4.8, chloride 108, CO2 of 26, glucose 117 and creatinine 0.8. His repeat thyroxine levels have been lower and have improved with a T4 of 11.6 and a free T4 of 2.51 and a TSH of less than 0.02 as noted. So, at this time, as the patient remains clinically euthyroid, we will hold off any kind of thyroid pharmacotherapy as we are most likely dealing with the so-called acute sick euthyroid syndrome. Only time will exactly confirm the presence of any kind of subclinical hyperthyroidism. So, we would recommend repeat thyroid function studies in 2 to 3 months to determine the exact nature of his thyroid status accordingly. We will follow. Trang Lux MD
--- NOTE | 2018-08-10 02:56 | DS ---
HISTORY OF PRESENT ILLNESS: Patient is stable. No chest pain. Status post cardiac cath, stent placement LAD. PHYSICAL EXAMINATION: VITAL SIGNS: Temperature 98, heart rate 67, blood pressure 119/74, and respirations 20. HEAD AND NECK: Normal. No JVD. No thyromegaly. CHEST: Clear bilateral. CARDIAC: First sound and second sound normal. ABDOMEN: Soft and nontender. EXTREMITIES: No edema. NEUROLOGIC: Normal. LABORATORY STUDIES: White count 12.4, hemoglobin 12.3, hematocrit 38, platelets 301. Chemistry; sodium 130, potassium 4.8, chloride 108, bicarb 26, BUN 19, creatinine 0.8, blood sugar 118, and calcium 8.4. ASSESSMENT: 1. Acute non-ST elevation myocardial infarction status post cardiac cath stenting left proximal left anterior descending. 2. Hypertension. Resume all his previous medications. 3. Chronic obstructive pulmonary disease with mild exacerbation. He was given Z-Alexys and Medrol Dosepak and continue inhaled bronchodilators. 4. Hypercholesterolemia. 5. Chronic osteoporosis. 6. Chronic back pain. PLAN: Continue current therapy. Martín Dias MD
== END 2018-08-08 13:25 | disposition home or self-care (01) | DRG 247 ==
LOC: ED 17:47 → ERH 19:38 → 3RNO 22:16 → 2RSO 08-07 15:02
PROVIDERS: ADMIT Internal Medicine; ATTEND Internal Medicine
PROC: 3E0F7GC Introduction of Other Therapeutic Substance into Respiratory Tract, Via Natural or Artificial Opening (ICD-10-PCS; 2018-08-05)
PROC: 027034Z Dilation of Coronary Artery, One Artery with Drug-eluting Intraluminal Device, Percutaneous Approach (ICD-10-PCS; principal; 2018-08-07)
PROC: 4A023N7 Measurement of Cardiac Sampling and Pressure, Left Heart, Percutaneous Approach (ICD-10-PCS; 2018-08-07)
PROC: B211YZZ Fluoroscopy of Multiple Coronary Arteries using Other Contrast (ICD-10-PCS; 2018-08-07)
PROC: B215YZZ Fluoroscopy of Left Heart using Other Contrast (ICD-10-PCS; 2018-08-07)
DX: I21.4 Non-ST elevation (NSTEMI) myocardial infarction (principal); J43.9 Emphysema, unspecified; I45.2 Bifascicular block; I25.110 Atherosclerotic heart disease of native coronary artery with unstable angina pectoris; I27.20 Pulmonary hypertension, unspecified; N40.0 Benign prostatic hyperplasia without lower urinary tract symptoms; E78.00 Pure hypercholesterolemia, unspecified; G89.29 Other chronic pain; I11.0 Hypertensive heart disease with heart failure; I50.9 Heart failure, unspecified; K21.9 Gastro-esophageal reflux disease without esophagitis; E78.5 Hyperlipidemia, unspecified; I35.2 Nonrheumatic aortic (valve) stenosis with insufficiency; G47.33 Obstructive sleep apnea (adult) (pediatric); E07.9 Disorder of thyroid, unspecified; M81.0 Age-related osteoporosis without current pathological fracture; F17.210 Nicotine dependence, cigarettes, uncomplicated; Z79.82 Long term (current) use of aspirin